=== PATIENT | female | born 1955 | race Caucasian/White ===

== ENCOUNTER 2017-06-08 07:11 | Inpatient (IN) | payer BC ==
[2017-06-03 14:47] LABS: BASOPHILS 1.1 %; BASOPHILS ABSOLUTE 0.07 10/3/uL (0.0-0.16); EOSINOPHILS 4.6 %; EOSINOPHILS ABSOLUTE 0.28 10/3/uL (0.0-0.53); HEMATOCRIT 39.8 % (36.0-48.0); IMMATURE GRANULOCYTES 0.3 %; IMMATURE GRANULOCYTES ABSOLUTE 0.02 10/3/uL (0.0-0.11); LYMPHOCYTES 37.4 %; MEAN CORPUS HGB CONC 32.7 g/dL (32.0-36.0); MEAN CORPUSCULAR HEMOGLOB 27.8 pg (26.0-34.0); MEAN CORPUSCULAR VOLUME 85.2 fL (80-100); MEAN PLATELET VOLUME 9.2 fL (9.2-13.0); MONOCYTES 8.1 %; NEUTROPHILS 48.5 %; NEUTROPHILS ABSOLUTE 2.98 10/3/uL (2.02-8.40); PLATELET COUNT 245 10/3/uL (150-400); RBC DISTRIBUTION WIDTH 14.5 % (12.0-16.0); RED CELL COUNT 4.67 10/6/uL (4.0-5.6); WHITE BLOOD CELLS 6.2 10/3/uL (4.5-10.5)
[2017-06-03 14:48] LABS: MANUAL DIFF NO %
[2017-06-03 14:59] LABS: PROTIME (NOT ORD) 13.2 SEC (12.0-14.5)
[2017-06-03 15:04] LABS: A/G RATIO 1.5 (0.7-1.9); ALBUMIN 4.1 G/DL (3.5-5.0); ALKALINE PHOSPHATASE 87 U/L (45-117); BUN (BLOOD UREA NITROGEN) 12 MG/DL (6-23); CALCIUM, SERUM 9.2 MG/DL (8.5-10.4); CHLORIDE, SERUM 107 MMOL/L (96-112); CO2 (CARBON DIOXIDE) 31 MMOL/L (24-34); CREATININE 0.91 MG/DL (0.55-1.02); GFR AFRICAN AMERICAN 79 ML/MIN (>=60); GFR NON AFRICAN AMERICAN 68 ML/MIN (>=60); GLOBULIN 2.7 G/DL (2.5-4.1); GLUCOSE, SERUM 81 MG/DL (60-99); POTASSIUM, SERUM 3.9 MMOL/L (3.5-5.3); SGOT(AST) 23 U/L (5-40); SGPT(ALT) 41 U/L (5-65); SODIUM, SERUM 141 MMOL/L (135-148); TOTAL BILIRUBIN 0.4 MG/DL (0-1.2); TOTAL PROTEIN 6.8 G/DL (6.0-8.5)
[~2017-06-08] VITALS: Ht 170.2 cm; Wt 94.8 kg
--- NOTE | ~2017-06-08 | OP ---
Record Of Operation [facility] [address] [place]. [address] NAME: GONZALO GAGE : 57 STATUS : ADM IN PAT#: [id number] AGE: 62 ADM/REG DATE : 06/08/17 MR#: [id number] REPORT SERV DATE: 06/09/17 DICTATED BY: MILADYS MEEHAN JR. DATE: 06/08/17 REPORT STATUS : Draft TRANSCRIBED BY: MODL DATE: 06/08/17 DATE OF PROCEDURE: 06/08/2017 PREOPERATIVE DIAGNOSES: Right lower lobe indeterminate mass, rule out bronchogenic carcinoma, chronic obstructive pulmonary disease, anxiety, benign essential hypertension, gastroesophageal reflux disease, and increased body mass index. POSTOPERATIVE DIAGNOSIS: Adenocarcinoma of right lower lobe. NAME OF OPERATION: Bronchoscopy, right thoracoscopy with wedge excision of right lower lobe lesion for diagnosis, completion right lower lobectomy, complete mediastinal node dissection, margarito stations 7, 9, 11R, intercostal nerve block. RESIDENT SURGEON: Dr. Cortez. DRYWALL BOARDHANGER: Carina Mckay. FINDINGS: The patient was noted to have normal anatomy on bronchoscopy. There was no contraindication proceeding on with surgery. Mucous secretions were evacuated. Upon exploration of the right chest, there was a small nodule in the basilar segment of the right lower lobe, measures 7 mm in size. This coincided with the mass seen on chest CT scan. This was wedged out and noted to be an adenocarcinoma. A completion lobectomy was performed. The margins were negative. Final pathology is pending. DETAILS OF OPERATION: After adequate general anesthesia, the patient was intubated. Bronchoscopy was performed noting no endobronchial lesions or contraindication to resection. A left-sided double-lumen endotracheal tube was then placed. The patient was positioned in the left lateral decubitus position with the right chest was prepped and draped in the routine sterile fashion. A small incision was made overlying the lower intercostal space. A separate anterior trocar incision was also made. Through these two incision sites, the above findings were noted. The mass was identified and excised using multiple firings of MECHELLE stapler. Tissue reinforcements were utilized. The specimen withdrawn through the anterior trocar site. Frozen section confirmed this to be a non-small cell lung cancer. A decision was made to go ahead and complete a right lower lobectomy. The inferior pulmonary ligament was divided. The inferior pulmonary vein was isolated. The superior pulmonary vein was also identified. The inferior pulmonary vein was then transected with a vascular stapler. The right lower lobe bronchus was dissected out and divided with a MECHELLE stapler. The fissure and pulmonary artery were then divided with multiple firings of MECHELLE stapler with tissue reinforcements. The remaining right lower lobe was then placed in a specimen bag and brought through the anterior trocar site. This nodes from the subcarinal, inferior pulmonary ligament, and hilar regions were then removed. Adequate hemostasis was obtained. Chest was thoroughly irrigated with sterile water. An intercostal nerve block was performed. A 20-Portuguese chest tube was then placed. The right upper and middle lobes were then reinflated. The trocar sites were closed with running Vicryl sutures. The skin was closed with running monofilament suture. A Dermabond dressing was applied, and the procedure was terminated at this point. The patient tolerated the procedure well and was Record Of Operation [address] [place]. [address] NAME: GONZALO GAGE : 57 STATUS : ADM IN [facility]#: [id number] AGE: 62 ADM/REG DATE : 06/08/17 MR#: [id number] REPORT SERV DATE: 06/09/17 DICTATED BY: MILADYS MEEHAN JR. DATE: 06/08/17 REPORT STATUS : Draft TRANSCRIBED BY: SYEDA DATE: 06/08/17 taken back to recovery room in stable condition. FABIO/SYEDA Miladys Meehan Jr., M.D. / [id number] CC: Tiffany Kam Jr., M.D. Karin Boeck, M.D.
[~2017-06-08 07:11] MED LIST: ANOROELLIPTA INH; ATEN25 PO; CELEXA20 PO; CO Q-10100 MG PO; COZAAR100 MG PO; CRESTOR5 MG PO; NORV5 PO; PROAIR HFA INH; VITE PO
[2017-06-09 05:26] LABS: BASOPHILS 0.1 %; BASOPHILS ABSOLUTE 0.01 10/3/uL (0.0-0.16); EOSINOPHILS 0 %; HEMATOCRIT 36.4 % (36.0-48.0); HEMOGLOBIN 11.6 g/dL (12.0-16.0); IMMATURE GRANULOCYTES 0.3 %; IMMATURE GRANULOCYTES ABSOLUTE 0.05 10/3/uL (0.0-0.11); LYMPHOCYTES 8.9 %; LYMPHOCYTES ABSOLUTE 1.32 10/3/uL (0.67-4.30); MANUAL DIFF NO %; MEAN CORPUS HGB CONC 31.9 g/dL (32.0-36.0); MEAN CORPUSCULAR HEMOGLOB 28.2 pg (26.0-34.0); MEAN CORPUSCULAR VOLUME 88.3 fL (80-100); MEAN PLATELET VOLUME 9.7 fL (9.2-13.0); MONOCYTES 7.5 %; MONOCYTES ABSOLUTE 1.11 10/3/uL (0.21-1.20); NEUTROPHILS 83.2 %; NEUTROPHILS ABSOLUTE 12.26 10/3/uL (2.02-8.40); PLATELET COUNT 250 10/3/uL (150-400); RBC DISTRIBUTION WIDTH 14.8 % (12.0-16.0); RED CELL COUNT 4.12 10/6/uL (4.0-5.6); WHITE BLOOD CELLS 14.8 10/3/uL (4.5-10.5)
[2017-06-09 05:36] LABS: BUN (BLOOD UREA NITROGEN) 21 MG/DL (6-23); CALCIUM, SERUM 8.4 MG/DL (8.5-10.4); CHLORIDE, SERUM 106 MMOL/L (96-112); CO2 (CARBON DIOXIDE) 26 MMOL/L (24-34); GFR AFRICAN AMERICAN 47 ML/MIN (>=60); GFR NON AFRICAN AMERICAN 40 ML/MIN (>=60); GLUCOSE, SERUM 132 MG/DL (60-99); POTASSIUM, SERUM 4.8 MMOL/L (3.5-5.3); SODIUM, SERUM 139 MMOL/L (135-148)
[2017-06-09] MEDS ORDERED: PCET PO (10:12)
== END 2017-06-09 14:30 | disposition home or self-care (01) | DRG 165 ==
LOC: ENRESERVTM → ENRESERVDT → CANRESERV → ENRESERV → SDC/OF 07:11 → 5NO 07:11
PROVIDERS: Thoracic Surgery (Cardiothoracic Vascular Surgery)
PROC: 0BTF4ZZ Resection of Right Lower Lung Lobe, Percutaneous Endoscopic Approach (ICD-10-PCS; 2017-06-08)
PROC: 07B74ZZ Excision of Thorax Lymphatic, Percutaneous Endoscopic Approach (ICD-10-PCS; 2017-06-08)
PROC: 3E0T3BZ Introduction of Anesthetic Agent into Peripheral Nerves and Plexi, Percutaneous Approach (ICD-10-PCS; 2017-06-08)
PROC: 0BJ08ZZ Inspection of Tracheobronchial Tree, Via Natural or Artificial Opening Endoscopic (ICD-10-PCS; 2017-06-08)
PROC: 0BTF4ZZ Resection of Right Lower Lung Lobe, Percutaneous Endoscopic Approach (ICD-10-PCS; principal; 2017-06-08 09:15)
DX: C34.31 Malignant neoplasm of lower lobe, right bronchus or lung (principal); J44.9 Chronic obstructive pulmonary disease, unspecified; I10 Essential (primary) hypertension; K21.9 Gastro-esophageal reflux disease without esophagitis; F41.9 Anxiety disorder, unspecified
CPT/HCPCS: 36415; 71020; 80048; 80053; 82962; 85025; 85610; 86850; 86900; 86901; 87641; 88305; 88307; 88309; 88313; 88331; 88341; 88342; 88360; 93005; 94640; A9270-GY; J0690; J1200; J2250; J2300; J2370; J2405; J2710; J2795; J3010; P9045